=== PATIENT | male | born 1960 | race Caucasian/White ===

== ENCOUNTER 2021-07-02 11:30 | Emergency (ER) | payer OTHER, SELFPAY ==
[2021-07-02 11:44] VITALS: BP 133/68; PULSE 68; RESP 16; TEMP 36.4; O2SAT 99
--- NOTE | 2021-07-02 11:59 | ED.EYEPROB ---
HPI - Eye Problem General Chief complaint: Eye Problems Stated complaint: Lt Eye Irritation Time Seen by Provider: 07/02/21 11:48 Source: patient and RN notes reviewed Mode of arrival: ambulatory Limitations: no limitations History of Present Illness HPI Narrative: Patient presents today complaining of 3-day history of left eye redness, itching, white/yellow drainage, blurred vision. Symptoms have worsened today with crusting of the eyelashes. He has been experiencing dry eye for the last 2 months and has been using some lubricating drops since then. Acutely he has been using warm compresses and saline washes without much relief. He wears glasses, but no contacts. MD chief complaint: eye redness and other (Drainage) Related Data Home Medications Medication Instructions Recorded Confirmed famotidine [Pepcid] 20 mg PO BID 07/02/21 07/02/21 lorazepam 0.5 mg PO TID 07/02/21 07/02/21 sertraline 100 mg PO DAILY 07/02/21 07/02/21 simvastatin 10 mg PO DAILY 07/02/21 07/02/21 Allergies Allergy/AdvReac Type Severity Reaction Status Date / Time No Known Allergies Allergy Unknown Verified 07/02/21 11:50 Review of Systems Review of Systems: CONSTITUTIONAL: Denies body aches, fever, chills, or sweats. EYES: + Left eye redness, itching, drainage, blurred vision ENT: Denies rhinorrhea, congestion, sore throat, or otalgia. CARDIOVASCULAR: Denies chest pain, palpitations, or edema. RESPIRATORY: Denies cough or dyspnea. GASTROINTESTINAL: Denies abdominal pain, nausea, vomiting, or diarrhea. GENITOURINARY: Denies dysuria or hematuria. SKIN: Denies rash, itching, or wounds. MUSCULOSKELETAL: Denies back pain, joint pain, or myalgia. NEUROLOGIC: Denies headache, numbness, tingling, or weakness. PSYCH: Denies depression or anxiety. [facility] Past Medical History Medical History (Updated 07/02/21 @ 12:11 by Amaris Linder, MATHEMATICS EDUCATION PROFESSOR, ) Anxiety GERD (gastroesophageal reflux disease) High cholesterol Comments At time of signature, I have reviewed and agree with nursing past medical, surgical, social and family history unless otherwise noted. Please see nursing chart for further information. There is no relevant family history pertinent to the presenting complaint Exam Narrative: GENERAL: Well-appearing, well-nourished, and in no acute distress. HEAD: Normocephalic, atraumatic. EYES: EOMI. PERRL. Left eye: Chemosis. Mildly injected conjunctive. Moderate early yellow/green purulent discharge in the medial and lateral canthus. Lids normal. Lashes crusted. Right eye normal. ENT: Mucous membranes pink and moist. NECK: Normal AROM. CHEST: No respiratory distress. EXTREMITIES: Normal range of motion. No edema. SKIN: Warm, dry, no rash. Capillary refill normal. Normal skin turgor. NEURO: No focal deficits. Alert and oriented x3. Gait steady. PSYCH: Normal affect. No signs of depression or anxiety. Course Course Level of Care: Express Care Visit Vital Signs Vital signs: Vital Signs Temperature 97.6 F 07/02/21 11:44 Pulse Rate 68 07/02/21 11:44 Respiratory Rate 16 07/02/21 11:44 Blood Pressure 133/68 07/02/21 11:44 Pulse Oximetry 99 07/02/21 11:44 Temperature 97.6 F 07/02/21 11:44 Pulse Rate 68 07/02/21 11:44 Respiratory Rate 16 07/02/21 11:44 Blood Pressure 133/68 07/02/21 11:44 Pulse Oximetry 99 07/02/21 11:44 Reviewed. Pt has been instructed to follow up with his PCP regarding his elevated blood pressure today. MDM - Eye Problem Differential Diagnosis Differential diagnosis: Likely corneal abrasion and periorbital cellulitis Critical Care Time Critical Care Time Critical Care Time: No Discharge Plan Discharge Clinical Impression: Acute bacterial conjunctivitis of left eye Patient Disposition: Home, Self-Care Condition: Stable Instructions: Conjunctivitis (ED) Additional Instructions: Please use eyedrops as directed. Follow-up with your eye doctor for furthe
== END 2021-07-02 12:05 | disposition home or self-care (01) ==
PROVIDERS: Emergency Provider Nurse Practitioner; PCP Internal Medicine
DX: H10.32 Unspecified acute conjunctivitis, left eye (principal); K21.9 Gastro-esophageal reflux disease without esophagitis; E78.00 Pure hypercholesterolemia, unspecified; F41.9 Anxiety disorder, unspecified
CPT/HCPCS: 99213; G0463

== ENCOUNTER 2024-12-19 11:15 | Outpatient (RCR) | payer OTHER, SELFPAY | END 2024-12-19 14:01 | disposition home or self-care (01) | LOC: ANHCPREHAB 11:15 | DX: Z95.1 Presence of aortocoronary bypass graft (principal) | CPT/HCPCS: 93798 ==